=== PATIENT | female | born 1955 ===

== ENCOUNTER → 2017-07-24 | Outpatient (CLI) | payer OTHER ==
[~2017-07-24] MED LIST: FLUO20TA25 PO; HYDROCORTISONE; LACT1CAP37 PO; MULT-516 PO; NORCO PO; OMEPRAZOLE PO
== END | disposition home or self-care (01) ==
LOC: CFH 07:56 → EDSTATUS 08:00
PROVIDERS: ATTEND Specialist
DX: Z12.31 Encounter for screening mammogram for malignant neoplasm of breast (principal)
CPT/HCPCS: 77063; G0202

== ENCOUNTER 2019-10-17 13:29 | Outpatient (CLI) | payer MEDICARE, OTHER | END 2019-10-17 23:59 | disposition home or self-care (01) | LOC: RAD 13:29 | PROVIDERS: ATTEND Orthopaedic Surgery | DX: S82.832A Other fracture of upper and lower end of left fibula, initial encounter for closed fracture (principal); M77.31 Calcaneal spur, right foot; M25.771 Osteophyte, right ankle; M25.772 Osteophyte, left ankle; M77.32 Calcaneal spur, left foot; X58.XXXA Exposure to other specified factors, initial encounter; Y93.89 Activity, other specified; Y92.89 Other specified places as the place of occurrence of the external cause; Y99.8 Other external cause status ==